=== PATIENT | female | born 1985 ===

== ENCOUNTER 2025-01-23 08:42 | Outpatient (REF) | payer BC, SELFPAY ==
--- OUTSIDE RECORDS SUMMARY | 2025-01-23 08:58 | XMS_ITS | Encounter Summary ---
Author Organization [facility] Address [address] [place] [id number] Phone Care Team Providers Care Burlapper Name Role Phone Sivan Varma DO Primary Care Provider + Pcp, Unknown Unavailable Unavailable Sivan Varma DO Unavailable [phone] Encounter Details Date Type Department Care Team (Late st Contact Info) Description 04/11/2024 Procedure Pass [facility], [address] [place] [address] Social History Tobacco Use Types Packs/Day Years Used Date Smoking Tobacco: Never Assessed Comments Unknown Sex and Gender Information Value Date Recorded Sex Assigned at Not on file Legal Sex Female 1:06 PM EDT Gender Identity Not on file Sexual Orientation Not on file documented as of this encounter Plan of Treatment Not on file documented as of this encounter Visit Diagnoses Not on filedocumented in this encounter Care Teams Burlapper Relationship Specialty Start Date End Date Sivan Varma DO [address] [place] [id number] [email or web address] PCP - General Family Medicine 04/18/24 Pcp, Unknown 04/18/24 Sivan Varma DO [address] [place] [address] [email or web address] Insurance Assigned Provider 07/21/24 documented as of this encounter Additional Source Comments The information contained in this document represents components of the legal health record. It is not the complete legal health record.[facility]
== END 2025-01-23 08:43 | disposition home or self-care (01) ==
LOC: HO.UMASIMG 08:42
PROVIDERS: Visit Provider Family Medicine
DX: Z13.89 Encounter for screening for other disorder (principal)